=== PATIENT | female | born 1945 | race Caucasian/White ===

== ENCOUNTER 2017-07-05 01:00 | Inpatient (IN) | payer MEDICARE, MEDICAID ==
[~2017-07-05] VITALS: Ht 162.6 cm; Wt 96.9 kg
[2017-07-05 01:34] LABS: BASOPHIL % 0.4 % (0-2); PLATELET COUNT 110 x10^3mcL (130-400); RED CELL DISTRIBUTION WIDTH 17.2 % (11.5-14.5)
[2017-07-05 01:41] LABS: CALCIUM 8.4 mg/dL (8.5-10.1); CARBON DIOXIDE 27.5 mmol/L (21-32); CHLORIDE SERUM 111 mmol/L (98-107); CREATININE SERUM 0.6 mg/dL (0.6-1.0); GLUCOSE SERUM 134 mg/dL (74-106); POTASSIUM SERUM 3.9 mmol/L (3.5-5.1); SODIUM SERUM 144 mmol/L (136-145)
[2017-07-05 01:46] LABS: ALKALINE PHOSPHATASE 205 U/L (46-116); ALT/SGPT 46 U/L (14-59); AST/SGOT 42 U/L (15-37); BILIRUBIN TOTAL 0.45 mg/dL (0.20-1.00); LIPASE 154 IU/L (73-393); TOTAL PROTEIN, SERUM 7.3 g/dL (6.4-8.2)
[2017-07-05 01:54] LABS: ALBUMIN 3.2 g/dL (3.4-5.0)
[2017-07-05 03:09] LABS: microscopic required? NO
[2017-07-05 03:21] LABS: UA SPECIFIC GRAVITY 1.015 (1.005-1.035); urine erythrocyte NEGATIVE (NEGATIVE)
[2017-07-05] MEDS ORDERED: METFORMIN850 M1 (03:33)
[2017-07-05] MEDS ORDERED: HUMULIN 70/303 ML (03:34)
[2017-07-05] MEDS ORDERED: LISINOPRIL2.5 MG (03:35)
[2017-07-05 05:04] LABS: CHOLESTEROL/HDL RATIO 3.3; MAGNESIUM 1.9 mg/dL (1.8-2.4); PHOSPHOROUS 2.6 mg/dL (2.5-4.9)
[2017-07-05 05:05] VITALS: BP 171/51
[2017-07-05 05:06] LABS: T3 TOTAL 1.07 ng/mL
[2017-07-05 05:20] LABS: FREE T4 0.95 ng/dL (0.76-1.46); FREE THYROXINE INDEX 2.3 ug/dL (1.4-4.5); T4(THYROXINE) 7.5 ug/dL (4.7-13.3)
[2017-07-05 06:07] LABS: AMPHETAMINE QUAL UR NONE DETECTED (NEG <=1000)
[2017-07-05 08:15] VITALS: BP 155/78
[2017-07-05 08:26] LABS: RED BLOOD CELLS 3.31 M/mm3 (4.10-5.10)
[2017-07-05 08:34] LABS: IRON 20 ug/dL (50-170); TOTAL IRON BINDING CAPACITY 416 ug/dL (250-450)
[2017-07-05 13:50] VITALS: BP 160/76
[2017-07-05 17:01] VITALS: BP 168/77
[2017-07-06 06:06] VITALS: BP 156/73
[2017-07-06 06:30] LABS: CALCIUM 8.7 mg/dL (8.5-10.1); CARBON DIOXIDE 26.3 mmol/L (21-32); CHLORIDE SERUM 109 mmol/L (98-107); CREATININE SERUM 0.7 mg/dL (0.6-1.0); GLUCOSE SERUM 182 mg/dL (74-106); POTASSIUM SERUM 4.2 mmol/L (3.5-5.1); SODIUM SERUM 143 mmol/L (136-145)
[2017-07-06 06:58] LABS: BASOPHIL % 0.6 % (0-2)
[2017-07-06 07:00] LABS: PLATELET COUNT 124 x10^3mcL (130-400); RED CELL DISTRIBUTION WIDTH 17.1 % (11.5-14.5)
[2017-07-06 07:01] LABS: rbc morphology (normal/abnorm) ABNORMAL (NORMAL)
[2017-07-06 09:00] VITALS: BP 139/58
[2017-07-06 14:07] VITALS: BP 140/66
[2017-07-06 17:13] VITALS: BP 149/59
[2017-07-06 20:21] VITALS: BP 166/62
[2017-07-07 05:39] VITALS: BP 145/60
[2017-07-07 06:19] LABS: BASOPHIL % 0.4 % (0-2)
[2017-07-07 06:29] LABS: CALCIUM 8.1 mg/dL (8.5-10.1); CHLORIDE SERUM 108 mmol/L (98-107); CREATININE SERUM 0.7 mg/dL (0.6-1.0); GLUCOSE SERUM 233 mg/dL (74-106); POTASSIUM SERUM 3.9 mmol/L (3.5-5.1); SODIUM SERUM 140 mmol/L (136-145)
[2017-07-07 06:30] LABS: PLATELET COUNT 110 x10^3mcL (130-400); RED CELL DISTRIBUTION WIDTH 17.2 % (11.5-14.5)
[2017-07-07 10:16] VITALS: BP 153/68
[2017-07-07 14:11] VITALS: BP 131/54
[2017-07-07 18:00] VITALS: BP 141/45
[2017-07-07 21:00] VITALS: BP 136/62
[2017-07-08 06:05] VITALS: BP 130/59
[2017-07-08 06:16] LABS: BASOPHIL % 0.4 % (0-2)
[2017-07-08 06:20] LABS: CALCIUM 8.4 mg/dL (8.5-10.1); CARBON DIOXIDE 26.9 mmol/L (21-32); CHLORIDE SERUM 107 mmol/L (98-107); CREATININE SERUM 0.6 mg/dL (0.6-1.0); GLUCOSE SERUM 213 mg/dL (74-106); MAGNESIUM 1.9 mg/dL (1.8-2.4); PHOSPHOROUS 3.1 mg/dL (2.5-4.9); POTASSIUM SERUM 3.9 mmol/L (3.5-5.1); SODIUM SERUM 142 mmol/L (136-145)
[2017-07-08 06:56] LABS: PLATELET COUNT 115 x10^3mcL (130-400); RED CELL DISTRIBUTION WIDTH 17.1 % (11.5-14.5)
[2017-07-08 08:43] VITALS: BP 159/55
[2017-07-08 13:43] VITALS: BP 154/58
[2017-07-08 18:07] VITALS: BP 153/67
[2017-07-08 22:32] VITALS: BP 115/49
[2017-07-09 06:38] VITALS: BP 142/67
[2017-07-09 06:55] LABS: CALCIUM 8.6 mg/dL (8.5-10.1); CARBON DIOXIDE 29.2 mmol/L (21-32); CHLORIDE SERUM 108 mmol/L (98-107); CREATININE SERUM 0.7 mg/dL (0.6-1.0); GLUCOSE SERUM 196 mg/dL (74-106); MAGNESIUM 1.9 mg/dL (1.8-2.4); PHOSPHOROUS 3.5 mg/dL (2.5-4.9); POTASSIUM SERUM 4.1 mmol/L (3.5-5.1); SODIUM SERUM 142 mmol/L (136-145)
[2017-07-09 07:07] LABS: BASOPHIL % 0.4 % (0-2)
[2017-07-09 07:29] LABS: PLATELET COUNT 109 x10^3mcL (130-400); RED CELL DISTRIBUTION WIDTH 17.4 % (11.5-14.5)
[2017-07-09 07:30] LABS: rbc morphology (normal/abnorm) ABNORMAL (NORMAL)
[2017-07-09 08:51] VITALS: BP 145/75
[2017-07-09 17:51] VITALS: BP 153/70
[2017-07-09 20:57] VITALS: BP 158/69
[2017-07-10 05:47] VITALS: BP 157/74
[2017-07-10 06:37] LABS: BASOPHIL % 0.2 % (0-2); PLATELET COUNT 152 x10^3mcL (130-400)
[2017-07-10 06:50] LABS: CALCIUM 8.7 mg/dL (8.5-10.1); CHLORIDE SERUM 105 mmol/L (98-107); CREATININE SERUM 0.7 mg/dL (0.6-1.0); GLUCOSE SERUM 210 mg/dL (74-106); POTASSIUM SERUM 3.8 mmol/L (3.5-5.1); SODIUM SERUM 139 mmol/L (136-145)
[2017-07-10 09:08] VITALS: BP 143/65
[2017-07-10 18:13] VITALS: BP 95/66
[2017-07-10 21:39] VITALS: BP 124/70
[2017-07-11 05:28] VITALS: BP 143/83
[2017-07-11 07:08] LABS: BASOPHIL % 0.3 % (0-2)
[2017-07-11 07:18] LABS: PLATELET COUNT 103 x10^3mcL (130-400); RED CELL DISTRIBUTION WIDTH 17.8 % (11.5-14.5)
[2017-07-11 10:34] VITALS: BP 147/55
[2017-07-11 18:02] VITALS: BP 145/66
[2017-07-11 21:46] VITALS: BP 151/67
[2017-07-12 06:48] VITALS: BP 138/65
[2017-07-12 10:56] VITALS: BP 162/49
[2017-07-12] MEDS ORDERED: APAP/HYDROCODON1 T13 PO (12:08)
[2017-07-12] MEDS ORDERED: TYL325 PO (12:09)
[2017-07-12] MEDS ORDERED: SIMETHICONE80 MG CH (12:15)
[2017-07-12] MEDS ORDERED: DOC-Q-LACE100 MG PO (12:15)
[2017-07-12] MEDS ORDERED: METFORMIN HCL1000 MG PO (12:15)
[2017-07-12 13:29] VITALS: BP 162/49
[2017-07-12] MEDS ORDERED: PRI20 PO (14:51)
== END 2017-07-12 17:20 | disposition home or self-care (01) | DRG 353 ==
LOC: ED 01:00 → DU 03:54 → MU 03:54 → DU 04:52 → MU 07-08 17:32
PROVIDERS: Emergency Medicine; Surgery; ADMIT Family Medicine
PROC: 0WUF0JZ Supplement Abdominal Wall with Synthetic Substitute, Open Approach (ICD-10-PCS; principal; 2017-07-09 09:00)
DX: K43.0 Incisional hernia with obstruction, without gangrene (principal); N17.0 Acute kidney failure with tubular necrosis; R18.8 Other ascites; E44.0 Moderate protein-calorie malnutrition; K72.90 Hepatic failure, unspecified without coma; K74.60 Unspecified cirrhosis of liver; E11.65 Type 2 diabetes mellitus with hyperglycemia; D50.9 Iron deficiency anemia, unspecified; R74.0 Nonspecific elevation of levels of transaminase and lactic acid dehydrogenase [LDH]; K75.81 Nonalcoholic steatohepatitis (NASH); M19.90 Unspecified osteoarthritis, unspecified site; Z79.4 Long term (current) use of insulin; Z96.652 Presence of left artificial knee joint; Z68.36 Body mass index [BMI] 36.0-36.9, adult; Z79.84 Long term (current) use of oral hypoglycemic drugs
CPT/HCPCS: 43235; 45378; 78226; 82962; 83880; 84439; 97110-GP; 97116-GP; 97530-GP; A9537; C1781; C9113; J0330; J0696; J1170; J1200; J1610; J1815; J1885; J2175; J2250; J2270; J2310; J2405; J2704; J2710; J2765; J2916; J3010; J3490; J7030; J8597; Q0092

== ENCOUNTER 2017-07-14 21:51 | Emergency (ER) | payer MEDICARE, MEDICAID ==
[~2017-07-14 21:51] MED LIST: APAP/HYDROCODON1 T13 PO; DOC-Q-LACE100 MG PO; HUMULIN 70/303 ML; LISINOPRIL2.5 MG; METFORMIN HCL1000 MG PO; METFORMIN850 M1; PRI20 PO; SIMETHICONE80 MG CH; TYL325 PO
[2017-07-15 03:14] VITALS: BP 135/85
== END 2017-07-15 02:15 | disposition home or self-care (01) ==
LOC: ED 21:51
DX: K59.00 Constipation, unspecified (principal); M54.9 Dorsalgia, unspecified; E11.9 Type 2 diabetes mellitus without complications; M19.90 Unspecified osteoarthritis, unspecified site
CPT/HCPCS: J0500

== ENCOUNTER 2020-03-19 12:16 | Emergency (ER) | payer OTHER, MEDICAID ==
[~2020-03-19] VITALS: Ht 157.5 cm; Wt 91.2 kg
[2020-03-19 14:11] LABS: CALCIUM 8.6 mg/dL (8.5-10.1); CARBON DIOXIDE 27.9 mmol/L (21-32); CHLORIDE SERUM 107 mmol/L (98-107); CREATININE SERUM 0.8 mg/dL (0.6-1.0); GLUCOSE SERUM 191 mg/dL (74-106); SODIUM SERUM 141 mmol/L (136-145)
[2020-03-19 14:17] LABS: PLATELET COUNT 83 x10^3mcL (130-400); RED CELL DISTRIBUTION WIDTH 15.1 % (11.5-14.5)
[2020-03-19 14:23] LABS: ALBUMIN 3.5 g/dL (3.4-5.0); ALKALINE PHOSPHATASE 118 U/L (46-116); ALT/SGPT 30 U/L (14-59); AST/SGOT 29 U/L (15-37); BILIRUBIN TOTAL 0.6 mg/dL (0.20-1.00); CHOLESTEROL 150 mg/dL (<200); HDL CHOLESTEROL 51 mg/dL (40-60); LIPASE 71 IU/L (73-393); T4(THYROXINE) 7.3 ug/dL (4.7-13.3); TOTAL PROTEIN, SERUM 6.8 g/dL (6.4-8.2)
[2020-03-19 15:02] LABS: UA SPECIFIC GRAVITY >=1.030 (1.005-1.035); microscopic required? YES; urine erythrocyte TRACE (NEGATIVE)
[2020-03-19 15:23] LABS: AMPHETAMINE QUAL UR NONE DETECTED (See below)
[2020-03-19 15:23] LABS: BAND NEUTROPHIL 0 % (0-10); BASOPHIL 0 % (0-2); MONOCYTE 2 % (0-7); PLATELET MORPHOLOGY PLATELETS DECREASED; SEGMENTED NEUTROPHILS 72 % (37-75); rbc morphology (normal/abnorm) ABNORMAL (NORMAL)
[2020-03-19 16:40] VITALS: BP 121/78
== END 2020-03-19 16:40 | disposition home or self-care (01) ==
LOC: ED 12:16
PROVIDERS: Emergency Medicine
DX: R60.9 Edema, unspecified (principal); R51 Headache; E11.9 Type 2 diabetes mellitus without complications; I10 Essential (primary) hypertension; E66.9 Obesity, unspecified; Z90.710 Acquired absence of both cervix and uterus; Z98.890 Other specified postprocedural states
CPT/HCPCS: 82962; 83880; Q0092

== ENCOUNTER 2020-03-29 10:45 | Emergency (ER) | payer OTHER, MEDICAID ==
[~2020-03-29] VITALS: Ht 157.5 cm; Wt 90.7 kg
[2020-03-29 10:54] VITALS: Ht 157.5 cm; Wt 90.7 kg
[2020-03-29 12:28] LABS: CALCIUM 8.8 mg/dL (8.5-10.1); CARBON DIOXIDE 26.9 mmol/L (21-32); CHLORIDE SERUM 105 mmol/L (98-107); CREATININE SERUM 0.7 mg/dL (0.6-1.0); GLUCOSE SERUM 104 mg/dL (74-106); POTASSIUM SERUM 3.9 mmol/L (3.5-5.1); SODIUM SERUM 142 mmol/L (136-145)
[2020-03-29 12:29] LABS: BASOPHIL % 0.4 % (0-2)
[2020-03-29 12:33] LABS: ALBUMIN 3.5 g/dL (3.4-5.0); ALKALINE PHOSPHATASE 109 U/L (46-116); ALT/SGPT 23 U/L (14-59); AST/SGOT 25 U/L (15-37); BILIRUBIN TOTAL 0.9 mg/dL (0.20-1.00); TOTAL PROTEIN, SERUM 6.9 g/dL (6.4-8.2)
[2020-03-29 12:35] LABS: PLATELET COUNT 89 x10^3mcL (130-400); RED CELL DISTRIBUTION WIDTH 15.4 % (11.5-14.5)
[2020-03-29 13:55] VITALS: BP 126/57
== END 2020-03-29 13:55 | disposition home or self-care (01) ==
LOC: ED 10:45
PROVIDERS: Emergency Medicine
DX: M54.5 Low back pain (principal); I10 Essential (primary) hypertension; E11.9 Type 2 diabetes mellitus without complications; Z98.890 Other specified postprocedural states
CPT/HCPCS: J1885; J7030